=== PATIENT | male | born 1995 | race African-American/Black ===

== ENCOUNTER 2017-04-13 22:25 | Inpatient (IN) | payer BC ==
[~2017-04-13] VITALS: Ht 175.3 cm; Wt 72.7 kg
[~2017-04-13 22:25] MED LIST: LANTUS 3 M100 UNITS1 SC; NOVOLOG PE100 UNITS/ SC
[2017-04-13 23:23] LABS: BASOPHIL COUNT 0.1 K/uL (0-0.1); EOSINOPHIL (%) 0.1 % (0-5); IMMATURE GRANULOCYTE (%) 0.7 % (0.0-0.7); IMMATURE GRANULOCYTE COUNT 0.1 K/uL; INSTRUMENT ABS NEUTROPHIL CT 8.1 K/uL; MCH 27.9 PG (29.0-34.0); MCHC 33.1 G/DL (30.0-36.0); MCV 84.3 FL (86-99); MEAN PLAT.VOLUME 10.7 uM^3 (9.0-12.4); MONOCYTE COUNT 0.4 K/uL (0-0.8); NEUTROPHIL (%) 75.8 % (45-76); NEUTROPHIL COUNT 8.1 K/uL (1.8-6.4); PLATELET COUNT 276 K/uL (156-360); RBC DIS.WIDTH-CV 13.7 % (11.8-14.6); RBC DIS.WIDTH-SD 41.9 % (39-53); RED BLOOD COUNT 5.81 M/uL (4.00-5.50); WHITE BLOOD COUNT 10.6 K/uL (4.1-10.2)
[2017-04-13 23:37] LABS: CARBON DIOXIDE (BICARBONATE) 14.8 MEQ/L (20-31)
[2017-04-13 23:39] LABS: CHLORIDE 98 mEq/L (99-109); POTASSIUM 4.2 mEq/L (3.7-5.4); SODIUM 135 mEq/L (136-147)
[2017-04-13 23:43] LABS: ANION GAP 26 MEQ/L (2-14); TOTAL BILIRUBIN 0.6 mg/dL (0.0-1.0)
[2017-04-13 23:45] LABS: ALKALINE PHOSPHATASE 96 IU/L (3-129); GFR ESTIMATE (CALCULATED) > 59 mL/min/
[2017-04-13 23:46] LABS: UREA NITROGEN (BUN) 10 mg/dL (9-23)
[2017-04-13 23:47] LABS: DIRECT BILIRUBIN 0.3 mg/dL (0.0-0.3)
[2017-04-13 23:49] LABS: LIPASE > 1055 U/L (1.0-51.0)
[2017-04-13 23:52] LABS: GLUCOSE 574 mg/dL (70-99)
[2017-04-14] VITALS (22 sets, daily range): BP systolic 109–154; BP diastolic 59–92
[2017-04-14 00:32] LABS: ADD MIUA? NO; BILIRUBIN NEGATIVE; BLOOD NEGATIVE; COLOR STRAW ((YELLOW)); GLUCOSE (STRIP) >=500; KETONES 80; LEUKOCYTES NEGATIVE; NITRITE NEGATIVE; PROTEIN (STRIP) NEGATIVE; SPECIFIC GRAVITY 1.031 (1.000-1.030); UCUL ADDED? NO; UROBILINOGEN 0.2 MG/DL (0.2-1.0)
[2017-04-14 02:43] LABS: POINT-OF-CARE METER ID UU13113731
[2017-04-14 03:18] LABS: POINT-OF-CARE METER ID UU13113731
[2017-04-14 03:53] LABS: POINT-OF-CARE METER ID UU13113731
[2017-04-14 04:25] LABS: POINT-OF-CARE METER ID UU13113731
[2017-04-14 05:33] LABS: POINT-OF-CARE METER ID UU13113731
[2017-04-14 06:37] LABS: POINT-OF-CARE METER ID UU13113731
[2017-04-14 06:56] LABS: ANION GAP 19 MEQ/L (2-14); CHLORIDE 110 MEQ/L (99-109); GFR ESTIMATE (CALCULATED) > 59 mL/min/; GLUCOSE 216 mg/dL (70-99); POTASSIUM 3.9 MEQ/L (3.7-5.4); SAMPLE HEMOLYSIS CHECK 0; SAMPLE ICTERIC CHECK 0; SAMPLE LIPEMIA CHECK 0; SODIUM 142 MEQ/L (136-147); UREA NITROGEN (BUN) 8 mg/dL (9-23)
[2017-04-14 07:08] LABS: Estimated Average Glucose 260 mg/dL (70-123); HEMOGLOBIN A1c (GLYCOHEMOGLOB) 10.7 % HGB (Below 5.7)
[2017-04-14 07:40] LABS: POINT-OF-CARE METER ID UU13113731
[2017-04-14 07:45] LABS: METH RESISTANT S AUREUS PCR NEGATIVE (NEGATIVE)
[2017-04-14 07:49] LABS: PROBE CHECK PASS; SPECIMEN PROCESSING CONTROL PASS
[2017-04-14 08:47] LABS: POINT-OF-CARE METER ID UU13113731
[2017-04-14 09:49] LABS: POINT-OF-CARE METER ID UU13113731
[2017-04-14 09:58] LABS: ANION GAP 13 MEQ/L (2-14); CHLORIDE 112 MEQ/L (99-109); GFR ESTIMATE (CALCULATED) > 59 mL/min/; GLUCOSE 162 mg/dL (70-99); POTASSIUM 3.4 MEQ/L (3.7-5.4); SAMPLE HEMOLYSIS CHECK 0; SAMPLE ICTERIC CHECK 0; SAMPLE LIPEMIA CHECK 0; SODIUM 140 MEQ/L (136-147); UREA NITROGEN (BUN) 6 mg/dL (9-23)
[2017-04-14 11:03] LABS: POINT-OF-CARE METER ID UU13113731
[2017-04-14 12:05] LABS: POINT-OF-CARE METER ID UU13113731
[2017-04-14 13:36] LABS: ANION GAP 13 MEQ/L (2-14); CHLORIDE 110 MEQ/L (99-109); GFR ESTIMATE (CALCULATED) > 59 mL/min/; GLUCOSE 172 mg/dL (70-99); HDL CHOLESTEROL 40 MG/DL (Desirable>=40); LDL CHOLESTEROL 44 mg/dL (Desirable<100); NON-HDL CHOLESTEROL 65 mg/dL (Desirable<160); POTASSIUM 3.3 MEQ/L (3.7-5.4); SAMPLE HEMOLYSIS CHECK 0; SAMPLE ICTERIC CHECK 0; SAMPLE LIPEMIA CHECK 0; SODIUM 140 MEQ/L (136-147); TOTAL CHOLESTEROL 105 mg/dL (Desirable<200); TRIGLYCERIDES 106 MG/DL (Normal: <150); UREA NITROGEN (BUN) 4 mg/dL (9-23)
[2017-04-14 16:52] LABS: ANION GAP 11 MEQ/L (2-14); CHLORIDE 107 MEQ/L (99-109); POTASSIUM 3.4 MEQ/L (3.7-5.4); SAMPLE HEMOLYSIS CHECK 0; SAMPLE ICTERIC CHECK 0; SAMPLE LIPEMIA CHECK 0; SODIUM 138 MEQ/L (136-147)
[2017-04-14 16:57] LABS: GFR ESTIMATE (CALCULATED) > 59 mL/min/; GLUCOSE 202 mg/dL (70-99); UREA NITROGEN (BUN) 3 mg/dL (9-23)
[2017-04-14 17:32] LABS: UR CREATININE CONCENTRATION 68.8 MG/DL
[2017-04-14 19:29] LABS: POINT-OF-CARE METER ID UU13113731
[2017-04-14 20:35] LABS: POINT-OF-CARE METER ID UU13113731
[2017-04-14 21:17] LABS: ANION GAP 15 MEQ/L (2-14); CHLORIDE 104 MEQ/L (99-109); POTASSIUM 3.7 MEQ/L (3.7-5.4); SAMPLE HEMOLYSIS CHECK 0; SAMPLE ICTERIC CHECK 0; SAMPLE LIPEMIA CHECK 0; SODIUM 138 MEQ/L (136-147)
[2017-04-14 21:22] LABS: GFR ESTIMATE (CALCULATED) > 59 mL/min/; GLUCOSE 250 mg/dL (70-99); UREA NITROGEN (BUN) 3 mg/dL (9-23)
[2017-04-14 21:52] LABS: POINT-OF-CARE METER ID UU13113731
[2017-04-14 23:12] LABS: POINT-OF-CARE METER ID UU13113731
[2017-04-15 02:00] VITALS: BP 135/67
[2017-04-15 05:59] LABS: HEMATOCRIT 42.6 % (38.0-50.0); MCH 28.5 PG (29.0-34.0); MCV 81.6 FL (86-99); MEAN PLAT.VOLUME 10.7 uM^3 (9.0-12.4); PLATELET COUNT 232 K/uL (156-360); RBC DIS.WIDTH-CV 13.6 % (11.8-14.6); RBC DIS.WIDTH-SD 39.6 % (39-53); RED BLOOD COUNT 5.22 M/uL (4.00-5.50); WHITE BLOOD COUNT 9.2 K/uL (4.1-10.2)
[2017-04-15 06:10] VITALS: BP 140/83
[2017-04-15 06:10] LABS: INTER. NORMALIZED RATIO 1.1; PROTHROMBIN TIME 11.1 (9.2-11.2)
[2017-04-15 06:43] LABS: ANION GAP 15 MEQ/L (2-14); CHLORIDE 100 MEQ/L (99-109); GFR ESTIMATE (CALCULATED) > 59 mL/min/; GLUCOSE 172 mg/dL (70-99); POTASSIUM 3.6 MEQ/L (3.7-5.4); SAMPLE HEMOLYSIS CHECK 0; SAMPLE ICTERIC CHECK 0; SAMPLE LIPEMIA CHECK 0; SODIUM 138 MEQ/L (136-147); UREA NITROGEN (BUN) 5 mg/dL (9-23)
[2017-04-15 08:00] VITALS: BP 150/84
[2017-04-15 08:48] LABS: POINT-OF-CARE METER ID UU13113731
[2017-04-15 09:44] LABS: POINT-OF-CARE METER ID UU13113731
[2017-04-15 09:44] LABS: POINT-OF-CARE METER ID UU13113778
[2017-04-15 10:05] VITALS: BP 149/81
[2017-04-15] MEDS ORDERED: LANTUS 3 M100 UNITS1 SC (13:36)
[2017-04-15 15:20] VITALS: BP 134/85
[2017-04-15 16:45] LABS: POINT-OF-CARE METER ID UU14162508; POINT-OF-CARE USER ID PUTDRM
[2017-04-15 21:49] LABS: POINT-OF-CARE METER ID UU14162508; POINT-OF-CARE USER ID PUTDRM
[2017-04-15 23:41] VITALS: BP 133/72
[2017-04-16 06:37] LABS: POINT-OF-CARE METER ID UU14162508
[2017-04-16 06:41] LABS: POINT-OF-CARE METER ID UU14162508
[2017-04-16 07:03] LABS: EOSINOPHIL (%) 0.8 % (0-5); EOSINOPHIL COUNT 0.1 K/uL (0-0.3); HEMATOCRIT 44.7 % (38.0-50.0); IMMATURE GRANULOCYTE (%) 0.4 % (0.0-0.7); INSTRUMENT ABS NEUTROPHIL CT 3.2 K/uL; LYMPHOCYTE COUNT 3.5 K/uL (1.0-2.8); MCH 28.2 PG (29.0-34.0); MCHC 35.1 G/DL (30.0-36.0); MCV 80.4 FL (86-99); MEAN PLAT.VOLUME 11.5 uM^3 (9.0-12.4); MONOCYTE (%) 6.4 % (3-12); MONOCYTE COUNT 0.5 K/uL (0-0.8); NEUTROPHIL (%) 44.1 % (45-76); NEUTROPHIL COUNT 3.2 K/uL (1.8-6.4); NRBC (%) 0.5 /100 WBC (0-0); RBC DIS.WIDTH-CV 13.6 % (11.8-14.6); RBC DIS.WIDTH-SD 38.5 % (39-53); RED BLOOD COUNT 5.56 M/uL (4.00-5.50); WHITE BLOOD COUNT 7.4 K/uL (4.1-10.2)
[2017-04-16 07:05] LABS: PLATELET COUNT 346 K/uL (156-360)
[2017-04-16 07:10] VITALS: BP 133/74
[2017-04-16 07:18] LABS: POINT-OF-CARE METER ID UU14162508
[2017-04-16 07:33] LABS: ANION GAP 12 MEQ/L (2-14); CHLORIDE 101 MEQ/L (99-109); GFR ESTIMATE (CALCULATED) > 59 mL/min/; SAMPLE HEMOLYSIS CHECK 0; SAMPLE ICTERIC CHECK 0; SAMPLE LIPEMIA CHECK 0; SODIUM 142 MEQ/L (136-147); UREA NITROGEN (BUN) 13 mg/dL (9-23)
[2017-04-16 07:37] LABS: GLUCOSE 67 mg/dL (70-99); POTASSIUM 2.8 MEQ/L (3.7-5.4)
[2017-04-16 12:10] LABS: POINT-OF-CARE METER ID UU14162508
[2017-04-16 15:30] LABS: ANION GAP 10 MEQ/L (2-14); CHLORIDE 96 MEQ/L (99-109); GFR ESTIMATE (CALCULATED) > 59 mL/min/; SAMPLE HEMOLYSIS CHECK 1; SAMPLE ICTERIC CHECK 0; SAMPLE LIPEMIA CHECK 0; SODIUM 135 MEQ/L (136-147); UREA NITROGEN (BUN) 14 mg/dL (9-23)
[2017-04-16 15:35] LABS: GLUCOSE 355 mg/dL (70-99); POTASSIUM 4.4 MEQ/L (3.7-5.4)
[2017-04-16 16:35] LABS: POINT-OF-CARE METER ID UU14162508
== END 2017-04-16 18:29 | disposition home or self-care (01) | DRG 637 ==
LOC: EME 22:25 → 4WEST 23:55 → EDOF 23:55 → 4WEST 04-14 01:05 → 2EASTP 04-15 09:55
PROVIDERS: Emergency Medicine; Internal Medicine; Internal Medicine Critical Care Medicine; Internal Medicine Nephrology
DX: E10.10 Type 1 diabetes mellitus with ketoacidosis without coma (principal); G93.41 Metabolic encephalopathy; K85.90 Acute pancreatitis without necrosis or infection, unspecified; N17.9 Acute kidney failure, unspecified; R16.0 Hepatomegaly, not elsewhere classified; I10 Essential (primary) hypertension; J45.909 Unspecified asthma, uncomplicated; R33.9 Retention of urine, unspecified; R74.8 Abnormal levels of other serum enzymes
CPT/HCPCS: 74176; 80048; 80048 91; 80061; 80076; 81003; 82010; 82570; 82803; 82948; 83036; 83605; 83690; 83735; 84100; 84156; 85025; 85027; 85610; 87641; 99281; 99285; J1644; J1815; J2270; J7030; J7042; J7050

== ENCOUNTER 2017-05-16 13:48 | Inpatient (IN) | payer BC ==
[~2017-05-16] VITALS: Ht 175.3 cm; Wt 65.4 kg
[2017-05-16 14:20] LABS: BASOPHIL COUNT 0.1 K/uL (0-0.1); EOSINOPHIL (%) 0.1 % (0-5); HEMATOCRIT 50.7 % (38.0-50.0); IMMATURE GRANULOCYTE (%) 1.5 % (0.0-0.7); IMMATURE GRANULOCYTE COUNT 0.2 K/uL; INSTRUMENT ABS NEUTROPHIL CT 12.3 K/uL; LYMPHOCYTE COUNT 1.4 K/uL (1.0-2.8); MCV 90.5 FL (86-99); MEAN PLAT.VOLUME 10.7 uM^3 (9.0-12.4); MONOCYTE (%) 4.3 % (3-12); MONOCYTE COUNT 0.6 K/uL (0-0.8); NEUTROPHIL (%) 83.9 % (45-76); NEUTROPHIL COUNT 12.3 K/uL (1.8-6.4); PLATELET COUNT 351 K/uL (156-360); RBC DIS.WIDTH-CV 14.7 % (11.8-14.6); RBC DIS.WIDTH-SD 48.4 % (39-53); WHITE BLOOD COUNT 14.7 K/uL (4.1-10.2)
[2017-05-16 14:34] LABS: CHLORIDE 87 mEq/L (99-109); POTASSIUM 4.1 mEq/L (3.7-5.4); SODIUM 138 mEq/L (136-147)
[2017-05-16 14:36] LABS: ADD MIUA? NO; BILIRUBIN NEGATIVE; BLOOD NEGATIVE; COLOR STRAW ((YELLOW)); GLUCOSE (STRIP) >=500; KETONES 80; LEUKOCYTES NEGATIVE; NITRITE NEGATIVE; PROTEIN (STRIP) NEGATIVE; SPECIFIC GRAVITY 1.024 (1.000-1.030); UCUL ADDED? NO; UROBILINOGEN 0.2 MG/DL (0.2-1.0)
[2017-05-16 14:38] LABS: ANION GAP 41 MEQ/L (2-14); TOTAL BILIRUBIN 1.3 mg/dL (0.0-1.0)
[2017-05-16 14:40] LABS: ALKALINE PHOSPHATASE 165 IU/L (3-129); GFR ESTIMATE (CALCULATED) > 59 mL/min/
[2017-05-16 14:42] LABS: DIRECT BILIRUBIN 0.8 mg/dL (0.0-0.3)
[2017-05-16 14:43] LABS: LIPASE 12 U/L (1.0-51.0)
[2017-05-16 14:45] LABS: AMPHETAMINE NEGATIVE (500 ng/mL); BARBITURATES NEGATIVE (200 ng/mL); BENZODIAZEPINES NEGATIVE (150 ng/mL); COCAINE NEGATIVE (150 ng/mL); INTERNAL CONTROLS VALID? YES; METHADONE NEGATIVE (200 ng/mL); METHAMPHETAMINE NEGATIVE (500 ng/mL); OPIATES (MORPHINE) NEGATIVE (100 ng/mL); OXYCODONE NEGATIVE (100 ng/mL); PHENCYCLIDINE NEGATIVE (25 ng/mL); PROPOXYPHENE NEGATIVE (300 ng/mL); THC CANNABINOIDS NEGATIVE (50 ng/mL); TRICYCLIC ANTIDEPRESSANTS NEGATIVE (300 ng/mL)
[2017-05-16 15:02] LABS: GLUCOSE 738 mg/dL (70-99)
[2017-05-16 15:41] LABS: UREA NITROGEN (BUN) 19 mg/dL (9-23)
[2017-05-16] MEDS ORDERED: LANTUS 3 M100 UNITS1 SC (16:03)
[2017-05-16 17:07] VITALS: BP 126/78
[2017-05-16 17:13] VITALS: BP 135/86
[2017-05-16 17:20] VITALS: BP 135/86
[2017-05-16 17:45] VITALS: BP 130/68
[2017-05-16 18:00] VITALS: BP 129/72
[2017-05-16 18:06] LABS: POINT-OF-CARE METER ID UU13113731
[2017-05-16 18:32] LABS: METH RESISTANT S AUREUS PCR NEGATIVE (NEGATIVE)
[2017-05-16 18:42] LABS: POINT-OF-CARE METER ID UU13113731
[2017-05-16 19:31] LABS: POINT-OF-CARE METER ID UU13113731
[2017-05-16 19:57] LABS: PROBE CHECK PASS; SPECIMEN PROCESSING CONTROL PASS
[2017-05-16 20:04] LABS: ANION GAP 30 MEQ/L (2-14); CHLORIDE 105 MEQ/L (99-109); POTASSIUM 4.2 MEQ/L (3.7-5.4); SAMPLE HEMOLYSIS CHECK 0; SAMPLE ICTERIC CHECK 0; SAMPLE LIPEMIA CHECK 0
[2017-05-16 20:14] LABS: SODIUM 147 MEQ/L (136-147)
[2017-05-16 20:29] LABS: GFR ESTIMATE (CALCULATED) > 59 mL/min/; UREA NITROGEN (BUN) 17 mg/dL (9-23)
[2017-05-16 20:29] LABS: POINT-OF-CARE METER ID UU13113731
[2017-05-16 20:32] LABS: GLUCOSE 206 mg/dL (70-99)
[2017-05-16 21:22] LABS: POINT-OF-CARE METER ID UU13113731
[2017-05-16 22:22] LABS: POINT-OF-CARE METER ID UU13113731
[2017-05-16 22:30] LABS: POINT-OF-CARE METER ID UU13113731
[2017-05-16 22:30] LABS: POINT-OF-CARE METER ID UU14100415
[2017-05-16 23:32] LABS: POINT-OF-CARE METER ID UU13113731
[2017-05-17] VITALS (9 sets, daily range): BP systolic 0–133; BP diastolic 0–89
[2017-05-17 00:19] LABS: POINT-OF-CARE METER ID UU13113731
[2017-05-17 01:16] LABS: SODIUM 145 mEq/L (136-147)
[2017-05-17 01:17] LABS: GLUCOSE 188 mg/dL (70-99)
[2017-05-17 01:19] LABS: ANION GAP 19 MEQ/L (2-14)
[2017-05-17 01:21] LABS: GFR ESTIMATE (CALCULATED) > 59 mL/min/
[2017-05-17 01:22] LABS: UREA NITROGEN (BUN) 12 mg/dL (9-23)
[2017-05-17 01:32] LABS: POINT-OF-CARE METER ID UU13113731
[2017-05-17 01:37] LABS: CHLORIDE 109 mEq/L (99-109); POTASSIUM 5.1 mEq/L (3.7-5.4)
[2017-05-17 02:17] LABS: POINT-OF-CARE METER ID UU13113731
[2017-05-17 03:15] LABS: POINT-OF-CARE METER ID UU13113731
[2017-05-17 04:32] LABS: POINT-OF-CARE METER ID UU13113731
[2017-05-17 05:00] LABS: CHLORIDE 109 mEq/L (99-109); POTASSIUM 4.6 mEq/L (3.7-5.4); SODIUM 146 mEq/L (136-147)
[2017-05-17 05:01] LABS: GLUCOSE 133 mg/dL (70-99)
[2017-05-17 05:03] LABS: ANION GAP 20 MEQ/L (2-14)
[2017-05-17 05:05] LABS: GFR ESTIMATE (CALCULATED) > 59 mL/min/
[2017-05-17 05:06] LABS: UREA NITROGEN (BUN) 11 mg/dL (9-23)
[2017-05-17 05:06] LABS: POINT-OF-CARE METER ID UU13113731
[2017-05-17 05:59] LABS: POINT-OF-CARE METER ID UU13113731
[2017-05-17 07:13] LABS: POINT-OF-CARE METER ID UU13113731
[2017-05-17 07:38] LABS: Estimated Average Glucose 295 mg/dL (70-123); HEMOGLOBIN A1c (GLYCOHEMOGLOB) 11.9 % HGB (Below 5.7)
[2017-05-17 08:24] LABS: POINT-OF-CARE METER ID UU13113748
[2017-05-17 09:17] LABS: POINT-OF-CARE METER ID UU13113731
[2017-05-17 09:41] LABS: ANION GAP 21 MEQ/L (2-14); CHLORIDE 106 MEQ/L (99-109); GFR ESTIMATE (CALCULATED) > 59 mL/min/; GLUCOSE 164 mg/dL (70-99); POTASSIUM 3.9 MEQ/L (3.7-5.4); SAMPLE HEMOLYSIS CHECK 0; SAMPLE ICTERIC CHECK 0; SAMPLE LIPEMIA CHECK 0; SODIUM 144 MEQ/L (136-147); UREA NITROGEN (BUN) 11 mg/dL (9-23)
[2017-05-17 10:01] LABS: POINT-OF-CARE METER ID UU13113748
[2017-05-17 11:02] LABS: POINT-OF-CARE METER ID UU13113731
[2017-05-17 12:12] LABS: POINT-OF-CARE METER ID UU13113748
[2017-05-17 13:11] LABS: ANION GAP 19 MEQ/L (2-14); CHLORIDE 104 MEQ/L (99-109); GFR ESTIMATE (CALCULATED) > 59 mL/min/; GLUCOSE 188 mg/dL (70-99); POTASSIUM 4.3 MEQ/L (3.7-5.4); SAMPLE HEMOLYSIS CHECK 0; SAMPLE ICTERIC CHECK 0; SAMPLE LIPEMIA CHECK 0; SODIUM 141 MEQ/L (136-147); UREA NITROGEN (BUN) 9 mg/dL (9-23)
[2017-05-17 13:16] LABS: POINT-OF-CARE METER ID UU13113748
[2017-05-17 14:19] LABS: POINT-OF-CARE METER ID UU13113748
[2017-05-17 15:32] LABS: POINT-OF-CARE METER ID UU13113748
[2017-05-17 16:18] LABS: ANION GAP 15 MEQ/L (2-14); CHLORIDE 102 MEQ/L (99-109); POTASSIUM 4.1 MEQ/L (3.7-5.4); SAMPLE HEMOLYSIS CHECK 0; SAMPLE ICTERIC CHECK 0; SAMPLE LIPEMIA CHECK 0; SODIUM 137 MEQ/L (136-147)
[2017-05-17 16:24] LABS: GFR ESTIMATE (CALCULATED) > 59 mL/min/; GLUCOSE 218 mg/dL (70-99); UREA NITROGEN (BUN) 9 mg/dL (9-23)
[2017-05-17 17:33] LABS: POINT-OF-CARE METER ID UU13113748
[2017-05-17 19:43] LABS: POINT-OF-CARE METER ID UU13113748
[2017-05-17 20:13] LABS: POINT-OF-CARE METER ID UU13113748
[2017-05-17 21:15] LABS: POINT-OF-CARE METER ID UU13113748
[2017-05-17 21:17] LABS: ANION GAP 12 MEQ/L (2-14); CHLORIDE 102 MEQ/L (99-109); GFR ESTIMATE (CALCULATED) > 59 mL/min/; GLUCOSE 208 mg/dL (70-99); SAMPLE HEMOLYSIS CHECK 0; SAMPLE ICTERIC CHECK 0; SAMPLE LIPEMIA CHECK 0; SODIUM 137 MEQ/L (136-147); UREA NITROGEN (BUN) 8 mg/dL (9-23)
[2017-05-17 22:27] LABS: POINT-OF-CARE METER ID UU13113748
[2017-05-17 23:30] LABS: POINT-OF-CARE METER ID UU13113748
[2017-05-17 23:57] LABS: POINT-OF-CARE METER ID UU13113748
[2017-05-18 00:45] VITALS: BP 124/79
[2017-05-18 01:00] LABS: POINT-OF-CARE METER ID UU13113731
[2017-05-18 02:00] VITALS: BP 133/78
[2017-05-18 06:00] VITALS: BP 132/69
[2017-05-18 06:24] LABS: ANION GAP 14 MEQ/L (2-14); CHLORIDE 102 MEQ/L (99-109); GFR ESTIMATE (CALCULATED) > 59 mL/min/; MAGNESIUM 1.4 mg/dl (1.3-2.7); POTASSIUM 4.1 MEQ/L (3.7-5.4); SAMPLE HEMOLYSIS CHECK 0; SAMPLE ICTERIC CHECK 0; SAMPLE LIPEMIA CHECK 0; SODIUM 140 MEQ/L (136-147); UREA NITROGEN (BUN) 8 mg/dL (9-23)
[2017-05-18 06:25] LABS: POINT-OF-CARE METER ID UU14208751
[2017-05-18 06:26] LABS: GLUCOSE 107 mg/dL (70-99)
[2017-05-18 06:51] LABS: BASOPHIL COUNT 0.1 K/uL (0-0.1); EOSINOPHIL (%) 0.7 % (0-5); EOSINOPHIL COUNT 0.1 K/uL (0-0.3); IMMATURE GRANULOCYTE (%) 0.8 % (0.0-0.7); IMMATURE GRANULOCYTE COUNT 0.1 K/uL; INSTRUMENT ABS NEUTROPHIL CT 4.3 K/uL; LYMPHOCYTE COUNT 4.2 K/uL (1.0-2.8); MCH 27.8 PG (29.0-34.0); MCHC 31.8 G/DL (30.0-36.0); MCV 87.2 FL (86-99); MONOCYTE (%) 5.6 % (3-12); MONOCYTE COUNT 0.5 K/uL (0-0.8); NEUTROPHIL (%) 46.9 % (45-76); NEUTROPHIL COUNT 4.3 K/uL (1.8-6.4); RBC DIS.WIDTH-CV 14.8 % (11.8-14.6); RBC DIS.WIDTH-SD 47.8 % (39-53); WHITE BLOOD COUNT 9.2 K/uL (4.1-10.2)
[2017-05-18 07:01] LABS: RED BLOOD COUNT 4.36 M/uL (4.00-5.50)
[2017-05-18 07:54] LABS: PLAT.SUFFICIENCY ADEQUATE
[2017-05-18 08:00] VITALS: BP 130/72
[2017-05-18 08:10] LABS: ALKALINE PHOSPHATASE 103 IU/L (3-129); DIRECT BILIRUBIN 0.1 mg/dL (0.0-0.3); TOTAL BILIRUBIN 0.5 MG/DL (0.0-1.0)
[2017-05-18 08:22] LABS: PLATELET COUNT 235 K/uL (156-360)
[2017-05-18] MEDS ORDERED: VENTOLIN HFA18 GM IH (14:30)
[2017-05-18] MEDS ORDERED: LANTUS 3 M100 UNITS1 SC ×2 (14:46→15:26)
[2017-05-18] MEDS ORDERED: NOVOLOG PE100 UNITS/ SC ×2 (14:46→15:26)
[2017-05-18 15:59] VITALS: BP 143/73
== END 2017-05-18 17:27 | disposition home or self-care (01) | DRG 638 ==
LOC: EME 13:48 → 5EAST 15:09 → 4WEST 15:09 → EDOF 15:09 → 4WEST 17:01 → 5EAST 05-18 07:36
PROVIDERS: Emergency Medicine; Internal Medicine; Internal Medicine Critical Care Medicine; Internal Medicine Nephrology
DX: E10.10 Type 1 diabetes mellitus with ketoacidosis without coma (principal); N17.9 Acute kidney failure, unspecified; E87.0 Hyperosmolality and hypernatremia; F33.9 Major depressive disorder, recurrent, unspecified; E86.1 Hypovolemia; J45.909 Unspecified asthma, uncomplicated; I10 Essential (primary) hypertension; F41.8 Other specified anxiety disorders; F17.210 Nicotine dependence, cigarettes, uncomplicated; Z79.4 Long term (current) use of insulin; Z91.14 Patient's other noncompliance with medication regimen
CPT/HCPCS: 80048; 80048 91; 80076; 81003; 82803; 82948; 83036; 83690; 83735; 84100; 85025; 87641; 99202; 99281; 99284; J1644; J1815; J2405; J7030; J7050; S0028

== ENCOUNTER 2017-06-18 10:07 | Inpatient (IN) | payer BC ==
[~2017-06-18] VITALS: Ht 160 cm; Wt 60.6 kg
[2017-06-18] VITALS (11 sets, daily range): BP systolic 90–136; BP diastolic 46–74
[~2017-06-18 10:07] MED LIST changes: +VENTOLIN HFA18 GM IH
[2017-06-18 10:54] LABS: MEAN PLAT.VOLUME 10.9 uM^3 (9.0-12.4); PLATELET COUNT 423 K/uL (156-360)
[2017-06-18 11:01] LABS: VENOUS PCO2 < 20 mm Hg (41-51)
[2017-06-18 11:10] LABS: CHLORIDE 91 mEq/L (99-109); SODIUM 134 mEq/L (136-147)
[2017-06-18 11:13] LABS: ANION GAP 42 MEQ/L (2-14)
[2017-06-18 11:16] LABS: GFR ESTIMATE (CALCULATED) 48 mL/min/
[2017-06-18 11:17] LABS: UREA NITROGEN (BUN) 23 mg/dL (9-23)
[2017-06-18 11:18] LABS: CARBON DIOXIDE (BICARBONATE) < 15.0 mEq/L (20-31); GLUCOSE 1096 mg/dL (70-99); LIPASE 34 U/L (1.0-51.0); POTASSIUM 6.4 mEq/L (3.7-5.4)
[2017-06-18 11:35] LABS: HEMATOCRIT 48.6 % (38.0-50.0); MCH 29.4 PG (29.0-34.0); MCHC 28.4 G/DL (30.0-36.0); MCV 103.6 FL (86-99); NRBC (%) 0.2 /100 WBC (0-0); RBC DIS.WIDTH-CV 15.2 % (11.8-14.6); RED BLOOD COUNT 4.69 M/uL (4.00-5.50)
[2017-06-18 11:36] LABS: WHITE BLOOD COUNT 38.6 K/uL (4.1-10.2)
[2017-06-18 11:49] LABS: SAMPLE HEMOLYSIS CHECK 2; SAMPLE ICTERIC CHECK 0; SAMPLE LIPEMIA CHECK 1
[2017-06-18 12:52] LABS: ADD MIUA? YES; BILIRUBIN NEGATIVE; BLOOD SMALL; COLOR STRAW ((YELLOW)); GLUCOSE (STRIP) >=500; KETONES 80; LEUKOCYTES NEGATIVE; NITRITE NEGATIVE; PROTEIN (STRIP) 30; SPECIFIC GRAVITY 1.024 (1.000-1.030); UROBILINOGEN 0.2 MG/DL (0.2-1.0)
[2017-06-18 13:00] LABS: BACTERIA RARE /HPF; EPITHELIAL CELLS RARE /HPF; MUCUS TRACE /LPF; RED BLOOD CELLS 0-5 /HPF (0-5); UCUL ADDED? NO; WHITE BLOOD CELLS 0-5 /HPF (0-5)
[2017-06-18 14:29] LABS: HEMATOCRIT 41.1 % (38.0-50.0); MCH 28.8 PG (29.0-34.0); MCHC 31.4 G/DL (30.0-36.0); MEAN PLAT.VOLUME 10.5 uM^3 (9.0-12.4); NRBC (%) 0.1 /100 WBC (0-0); PLATELET COUNT 361 K/uL (156-360); RBC DIS.WIDTH-CV 15.4 % (11.8-14.6); RED BLOOD COUNT 4.48 M/uL (4.00-5.50)
[2017-06-18 14:33] LABS: METH RESISTANT S AUREUS PCR NEGATIVE (NEGATIVE)
[2017-06-18 14:34] LABS: PROBE CHECK PASS; SPECIMEN PROCESSING CONTROL PASS
[2017-06-18 14:51] LABS: ANION GAP 37 MEQ/L (2-14); CHLORIDE 101 MEQ/L (99-109); MAGNESIUM 2.4 mg/dl (1.3-2.7); SAMPLE HEMOLYSIS CHECK 2; SAMPLE ICTERIC CHECK 0; SAMPLE LIPEMIA CHECK 0; UREA NITROGEN (BUN) 26 mg/dL (9-23)
[2017-06-18 14:52] LABS: GFR ESTIMATE (CALCULATED) > 59 mL/min/; GLUCOSE 630 mg/dL (70-99); POTASSIUM 4.8 MEQ/L (3.7-5.4); SODIUM 143 MEQ/L (136-147)
[2017-06-18 15:08] LABS: MCV 91.7 FL (86-99); WHITE BLOOD COUNT 36.5 K/uL (4.1-10.2)
[2017-06-18 15:22] LABS: ABS NEUTROPHIL COUNT 27.8; ANISOCYTOSIS 1+; ATYPICAL LYMPHOCYTE 0.8 %; BASOPHILS 0.4 %; EOSINOPHIL ABS CT 0; INSTRUMENT ABS NEUTROPHIL CT 26.6 K/uL; LYMPHOCYTES 10.8 % (15.0-45.0); MACROCYTES 1+; METAMYELOCYTES 3.8 %; MICROCYTOSIS 1+; MYELOCYTES 2.5 %; POLYCHROMASIA 1+; SEG.NEUTROPHILS 66.3 % (46.0-76.0)
[2017-06-18 16:28] LABS: POINT-OF-CARE METER ID UU14174217
[2017-06-18 17:19] LABS: POINT-OF-CARE METER ID UU14208751
[2017-06-18 18:02] LABS: POINT-OF-CARE METER ID UU14208751
[2017-06-18 18:54] LABS: POINT-OF-CARE METER ID UU14208751
[2017-06-18 19:01] LABS: ANION GAP 24 MEQ/L (2-14); CHLORIDE 109 MEQ/L (99-109); POTASSIUM 4.3 MEQ/L (3.7-5.4); SAMPLE HEMOLYSIS CHECK 0; SAMPLE ICTERIC CHECK 0; SAMPLE LIPEMIA CHECK 0; SODIUM 146 MEQ/L (136-147)
[2017-06-18 19:02] LABS: GFR ESTIMATE (CALCULATED) > 59 mL/min/; UREA NITROGEN (BUN) 20 mg/dL (9-23)
[2017-06-18 19:07] LABS: GLUCOSE 226 mg/dL (70-99)
[2017-06-18 19:35] LABS: POINT-OF-CARE METER ID UU14208751
[2017-06-18 20:39] LABS: POINT-OF-CARE METER ID UU14208751
[2017-06-18 20:59] LABS: POINT-OF-CARE METER ID UU14174217
[2017-06-18 21:25] LABS: AMPHETAMINES QUANT VALUE 0 NG/ML; BARBITUATES QUANT VALUE 0 NG/ML; BENZODIAZEPINES QUANT VALUE 0 NG/ML; BENZODIAZEPINES, URINE SCREEN Negative (200 ng/mL); MARIJUANA QUANT VALUE 0 NG/ML; OPIATES QUANTITATIVE VALUE 0 NG/ML; PHENCYCLIDINE QUANT VALUE 0 NG/ML
[2017-06-18 22:13] LABS: ANION GAP 15 MEQ/L (2-14); CHLORIDE 109 MEQ/L (99-109); GFR ESTIMATE (CALCULATED) > 59 mL/min/; GLUCOSE 178 mg/dL (70-99); POTASSIUM 4.1 MEQ/L (3.7-5.4); SAMPLE HEMOLYSIS CHECK 0; SAMPLE ICTERIC CHECK 0; SAMPLE LIPEMIA CHECK 0; SODIUM 144 MEQ/L (136-147); UREA NITROGEN (BUN) 15 mg/dL (9-23)
[2017-06-18 22:14] LABS: POINT-OF-CARE METER ID UU14174217
[2017-06-18 23:09] LABS: POINT-OF-CARE METER ID UU14174217
[2017-06-19] VITALS (17 sets, daily range): BP systolic 94–143; BP diastolic 48–85
[2017-06-19] LABS: POINT-OF-CARE METER ID UU14174217
[2017-06-19 00:48] LABS: SODIUM 143 mEq/L (136-147)
[2017-06-19 00:50] LABS: GLUCOSE 138 mg/dL (70-99)
[2017-06-19 00:51] LABS: ANION GAP 16 MEQ/L (2-14)
[2017-06-19 00:54] LABS: GFR ESTIMATE (CALCULATED) > 59 mL/min/
[2017-06-19 00:55] LABS: UREA NITROGEN (BUN) 15 mg/dL (9-23)
[2017-06-19 01:00] LABS: POINT-OF-CARE METER ID UU14208751
[2017-06-19 01:01] LABS: CHLORIDE 107 mEq/L (99-109); POTASSIUM 3.1 mEq/L (3.7-5.4)
[2017-06-19 02:03] LABS: POINT-OF-CARE METER ID UU14162636
[2017-06-19 03:11] LABS: POINT-OF-CARE METER ID UU14162636
[2017-06-19 04:12] LABS: POINT-OF-CARE METER ID UU14162636
[2017-06-19 04:31] LABS: POINT-OF-CARE METER ID UU14162636
[2017-06-19 05:34] LABS: POINT-OF-CARE METER ID UU14162636
[2017-06-19 06:10] LABS: ANION GAP 13 MEQ/L (2-14); CHLORIDE 106 MEQ/L (99-109); GFR ESTIMATE (CALCULATED) > 59 mL/min/; POTASSIUM 3.5 MEQ/L (3.7-5.4); SAMPLE HEMOLYSIS CHECK 0; SAMPLE ICTERIC CHECK 0; SAMPLE LIPEMIA CHECK 0; SODIUM 143 MEQ/L (136-147); UREA NITROGEN (BUN) 13 mg/dL (9-23)
[2017-06-19 06:23] LABS: POINT-OF-CARE METER ID UU14162636
[2017-06-19 06:34] LABS: GLUCOSE 101 mg/dL (70-99)
[2017-06-19 08:07] LABS: POINT-OF-CARE METER ID UU13113731
[2017-06-19 08:54] LABS: ANION GAP 13 MEQ/L (2-14); CHLORIDE 106 MEQ/L (99-109); GFR ESTIMATE (CALCULATED) > 59 mL/min/; GLUCOSE 134 mg/dL (70-99); POTASSIUM 3.3 MEQ/L (3.7-5.4); SAMPLE HEMOLYSIS CHECK 0; SAMPLE ICTERIC CHECK 0; SAMPLE LIPEMIA CHECK 0; SODIUM 141 MEQ/L (136-147); UREA NITROGEN (BUN) 12 mg/dL (9-23)
[2017-06-19 09:06] LABS: POINT-OF-CARE METER ID UU14174217
[2017-06-19 09:47] LABS: POINT-OF-CARE METER ID UU13113731
[2017-06-19 10:45] LABS: POINT-OF-CARE METER ID UU13113731
[2017-06-19 11:44] LABS: POINT-OF-CARE METER ID UU13113731
[2017-06-19 12:32] LABS: POINT-OF-CARE METER ID UU13113731
[2017-06-19 13:12] LABS: POINT-OF-CARE METER ID UU13113731; POINT-OF-CARE USER ID AGYTJR
[2017-06-19 13:27] LABS: ANION GAP 12 MEQ/L (2-14); CHLORIDE 106 MEQ/L (99-109); GFR ESTIMATE (CALCULATED) > 59 mL/min/; GLUCOSE 133 mg/dL (70-99); POTASSIUM 3.1 MEQ/L (3.7-5.4); SAMPLE HEMOLYSIS CHECK 0; SAMPLE ICTERIC CHECK 0; SAMPLE LIPEMIA CHECK 0; SODIUM 141 MEQ/L (136-147); UREA NITROGEN (BUN) 11 mg/dL (9-23)
[2017-06-19 14:22] LABS: POINT-OF-CARE METER ID UU13113731
[2017-06-19 14:58] LABS: POINT-OF-CARE METER ID UU13113731
[2017-06-19] MEDS ORDERED: PROAIR HFA8.5 GM IH (15:13)
[2017-06-19] MEDS ORDERED: NOVOLOG PE100 UNITS/ SC (15:13)
[2017-06-19] MEDS ORDERED: LANTUS 3 M100 UNITS1 SC (15:13)
[2017-06-19 18:23] LABS: POINT-OF-CARE METER ID UU14162636
[2017-06-19 22:51] LABS: POINT-OF-CARE METER ID UU13113731
[2017-06-20] VITALS: BP 126/78
[2017-06-20 03:22] LABS: POINT-OF-CARE METER ID UU13113731
[2017-06-20 03:39] LABS: POINT-OF-CARE METER ID UU13113731
[2017-06-20 04:00] VITALS: BP 136/82
[2017-06-20 06:29] LABS: EOSINOPHIL (%) 0.4 % (0-5); HEMATOCRIT 33.9 % (38.0-50.0); IMMATURE GRANULOCYTE (%) 1.3 % (0.0-0.7); IMMATURE GRANULOCYTE COUNT 0.1 K/uL; LYMPHOCYTE COUNT 3.1 K/uL (1.0-2.8); MCH 28.8 PG (29.0-34.0); MCHC 32.7 G/DL (30.0-36.0); MCV 88.1 FL (86-99); MONOCYTE (%) 5.7 % (3-12); MONOCYTE COUNT 0.4 K/uL (0-0.8); NEUTROPHIL (%) 52.5 % (45-76); NRBC (%) 0.3 /100 WBC (0-0); RBC DIS.WIDTH-CV 15.8 % (11.8-14.6); RBC DIS.WIDTH-SD 51.2 % (39-53); RED BLOOD COUNT 3.85 M/uL (4.00-5.50); WHITE BLOOD COUNT 7.7 K/uL (4.1-10.2)
[2017-06-20 06:38] LABS: POINT-OF-CARE METER ID UU13113731
[2017-06-20 06:40] LABS: ANION GAP 5 MEQ/L (2-14); CHLORIDE 106 MEQ/L (99-109); GFR ESTIMATE (CALCULATED) > 59 mL/min/; POTASSIUM 3.4 MEQ/L (3.7-5.4); SAMPLE HEMOLYSIS CHECK 0; SAMPLE ICTERIC CHECK 0; SAMPLE LIPEMIA CHECK 0; SODIUM 141 MEQ/L (136-147); UREA NITROGEN (BUN) 7 mg/dL (9-23)
[2017-06-20 06:48] LABS: GLUCOSE 68 mg/dL (70-99); MAGNESIUM 1.8 mg/dl (1.3-2.7)
[2017-06-20 07:07] LABS: PLAT.SUFFICIENCY ADEQUATE
[2017-06-20 07:25] LABS: PLATELET COUNT 221 K/uL (156-360)
[2017-06-20 08:00] VITALS: BP 143/85
[2017-06-20 10:15] LABS: POINT-OF-CARE METER ID UU13113731; POINT-OF-CARE USER ID 612031313
[2017-06-20 12:00] VITALS: BP 126/83
[2017-06-20] MEDS ORDERED: LANTUS 3 M100 UNITS1 SC (12:06)
[2017-06-20] MEDS ORDERED: NOVOLOG PE100 UNITS/ SC (12:06)
[2017-06-20] MEDS ORDERED: INJECT-EASE1 EACH MC (12:08)
[2017-06-20 14:21] LABS: POINT-OF-CARE METER ID UU14162636; POINT-OF-CARE USER ID 612031313
[2017-06-20 17:53] LABS: POINT-OF-CARE METER ID UU14162636; POINT-OF-CARE USER ID 612031313
[2017-06-20 20:00] VITALS: BP 136/93
[2017-06-20 22:24] LABS: POINT-OF-CARE METER ID UU14162636
[2017-06-21 10:36] LABS: POINT-OF-CARE METER ID UU13113731
[2017-06-21 11:42] LABS: POINT-OF-CARE METER ID UU14208751
[2017-06-21 11:42] LABS: POINT-OF-CARE METER ID UU14174217
== END 2017-06-20 22:38 | disposition home or self-care (01) | DRG 639 ==
LOC: EME → EDBD 10:07 → EDOF 11:27 → ENRESERV 11:28 → EDOF 11:46 → ENRESERV 12:15 → 4WEST 12:49
PROVIDERS: Emergency Medicine; Internal Medicine Critical Care Medicine
DX: E10.10 Type 1 diabetes mellitus with ketoacidosis without coma (principal); D72.829 Elevated white blood cell count, unspecified; E86.0 Dehydration; F17.200 Nicotine dependence, unspecified, uncomplicated; E87.5 Hyperkalemia; J45.909 Unspecified asthma, uncomplicated; I10 Essential (primary) hypertension; F19.90 Other psychoactive substance use, unspecified, uncomplicated; Z79.4 Long term (current) use of insulin
CPT/HCPCS: 71010; 80048; 80048 91; 80306 90; 81003; 82010; 82803; 82948; 83605; 83690; 83735; 84100; 84999; 85025; 85027; 87040; 87641; 93005; 99281; 99285; J1644; J1815; J2060; J2405; J7030; J7050; J7070

== ENCOUNTER 2017-07-20 15:16 | Emergency (ER) | payer BC ==
[~2017-07-20] VITALS: Ht 172.7 cm; Wt 65.4 kg
[~2017-07-20 15:16] MED LIST changes: +INJECT-EASE1 EACH MC; +PROAIR HFA8.5 GM IH
[2017-07-20 15:47] LABS: POINT-OF-CARE METER ID UU13113778
[2017-07-20] MEDS ORDERED: GUAIFENESIN600 M1 PO (16:35)
[2017-07-20] MEDS ORDERED: NOVOLOG PE100 UNITS/ SC (16:35)
[2017-07-20] MEDS ORDERED: TESSALON PERLE100 MG PO (16:35)
[2017-07-20] MEDS ORDERED: LANTUS 3 M100 UNITS1 SC (16:35)
[2017-07-20] MEDS ORDERED: ZYRTEC10 M2 PO (16:35)
[2017-07-20 16:44] VITALS: BP 130/76
== END 2017-07-20 16:46 | disposition home or self-care (01) ==
LOC: EME 15:16
DX: J06.9 Acute upper respiratory infection, unspecified (principal); J45.909 Unspecified asthma, uncomplicated; E11.9 Type 2 diabetes mellitus without complications; Z79.4 Long term (current) use of insulin; Z76.0 Encounter for issue of repeat prescription; F17.200 Nicotine dependence, unspecified, uncomplicated; I10 Essential (primary) hypertension; Z88.2 Allergy status to sulfonamides
CPT/HCPCS: 82948; 94640; 99281; 99284

== ENCOUNTER 2017-07-25 19:28 | Emergency (ER) | payer BC ==
[~2017-07-25] VITALS: Ht 175.3 cm; Wt 65.8 kg
[~2017-07-25 19:28] MED LIST changes: +GUAIFENESIN600 M1 PO; +TESSALON PERLE100 MG PO; +ZYRTEC10 M2 PO
[2017-07-25 20:51] LABS: BASOPHIL COUNT 0.1 K/uL (0-0.1); EOSINOPHIL (%) 0.5 % (0-5); EOSINOPHIL COUNT 0.1 K/uL (0-0.3); HEMATOCRIT 39.3 % (38.0-50.0); IMMATURE GRANULOCYTE (%) 4.6 % (0.0-0.7); IMMATURE GRANULOCYTE COUNT 0.5 K/uL; INSTRUMENT ABS NEUTROPHIL CT 6.4 K/uL; LYMPHOCYTE COUNT 3.2 K/uL (1.0-2.8); MCH 30.1 PG (29.0-34.0); MCHC 32.8 G/DL (30.0-36.0); MCV 91.6 FL (86-99); MONOCYTE (%) 4.9 % (3-12); MONOCYTE COUNT 0.5 K/uL (0-0.8); NEUTROPHIL (%) 59.7 % (45-76); NEUTROPHIL COUNT 6.4 K/uL (1.8-6.4); PLATELET COUNT 383 K/uL (156-360); RBC DIS.WIDTH-CV 13.3 % (11.8-14.6); RED BLOOD COUNT 4.29 M/uL (4.00-5.50); WHITE BLOOD COUNT 10.7 K/uL (4.1-10.2)
[2017-07-25 20:54] LABS: CARBON DIOXIDE (BICARBONATE) 12.2 MEQ/L (20-31)
[2017-07-25 21:01] LABS: CHLORIDE 90 mEq/L (99-109); POTASSIUM 4.9 mEq/L (3.7-5.4); SODIUM 127 mEq/L (136-147)
[2017-07-25 21:05] LABS: ANION GAP 26 MEQ/L (2-14); TOTAL BILIRUBIN 0.6 mg/dL (0.0-1.0)
[2017-07-25 21:06] LABS: GLUCOSE 724 mg/dL (70-99)
[2017-07-25 21:07] LABS: ALKALINE PHOSPHATASE 148 IU/L (3-129); GFR ESTIMATE (CALCULATED) > 59 mL/min/
[2017-07-25 21:08] LABS: UREA NITROGEN (BUN) 21 mg/dL (9-23)
[2017-07-25 21:09] LABS: DIRECT BILIRUBIN 0.3 mg/dL (0.0-0.3)
[2017-07-25 21:11] LABS: LIPASE 24 U/L (1.0-51.0)
[2017-07-25 21:40] LABS: ADD MIUA? NO; BILIRUBIN NEGATIVE; BLOOD NEGATIVE; COLOR COLORLESS ((YELLOW)); GLUCOSE (STRIP) >=500; KETONES 80; LEUKOCYTES NEGATIVE; NITRITE NEGATIVE; PROTEIN (STRIP) NEGATIVE; SPECIFIC GRAVITY 1.027 (1.000-1.030); UROBILINOGEN 0.2 MG/DL (0.2-1.0)
[2017-07-25 22:35] LABS: UCUL ADDED? NO; URINE COMMENT N
[2017-07-26 00:36] LABS: POTASSIUM 4.7 mEq/L (3.7-5.4); SODIUM 132 mEq/L (136-147)
[2017-07-26 00:37] LABS: CHLORIDE 104 mEq/L (99-109)
[2017-07-26 00:39] LABS: ANION GAP 21 MEQ/L (2-14)
[2017-07-26 00:41] LABS: GLUCOSE 474 mg/dL (70-99)
[2017-07-26 00:42] LABS: GFR ESTIMATE (CALCULATED) > 59 mL/min/; UREA NITROGEN (BUN) 18 mg/dL (9-23)
[2017-07-26 01:07] LABS: POINT-OF-CARE METER ID UU14100415
[2017-07-26 01:40] LABS: POINT-OF-CARE METER ID UU13113702
[2017-07-26 02:11] LABS: POINT-OF-CARE METER ID UU13113702
[2017-07-26 02:41] LABS: POINT-OF-CARE METER ID UU13113702
[2017-07-26 03:41] VITALS: BP 123/68
[2017-07-26 03:48] LABS: POINT-OF-CARE METER ID UU13113702
[2017-07-26 07:01] LABS: Estimated Average Glucose 263 mg/dL (70-123); HEMOGLOBIN A1c (GLYCOHEMOGLOB) 10.8 % HGB (Below 5.7)
== END 2017-07-26 03:46 | disposition short-term general hospital (02) ==
LOC: EME 19:28
PROVIDERS: Emergency Medicine
DX: E13.10 Other specified diabetes mellitus with ketoacidosis without coma (principal); J45.909 Unspecified asthma, uncomplicated; Z79.4 Long term (current) use of insulin; I10 Essential (primary) hypertension; F17.200 Nicotine dependence, unspecified, uncomplicated
CPT/HCPCS: 80048; 80048 91; 80076; 81003; 82803; 82948; 83036; 83690; 84100; 85025; 99281; 99285; J1815; J2405; J3010; J7030; J7050

== ENCOUNTER 2017-09-17 12:57 | Inpatient (IN) | payer SELFPAY ==
[~2017-09-17] VITALS: Ht 175.3 cm; Wt 64.1 kg
[2017-09-17 13:48] LABS: BASOPHIL COUNT 0.1 K/uL (0-0.1); EOSINOPHIL (%) 0.7 % (0-5); EOSINOPHIL COUNT 0.1 K/uL (0-0.3); IMMATURE GRANULOCYTE (%) 0.8 % (0.0-0.7); IMMATURE GRANULOCYTE COUNT 0.1 K/uL; INSTRUMENT ABS NEUTROPHIL CT 4.9 K/uL; LYMPHOCYTE COUNT 2.3 K/uL (1.0-2.8); MCH 28.8 PG (29.0-34.0); MCHC 32.3 G/DL (30.0-36.0); MCV 89.2 FL (86-99); MEAN PLAT.VOLUME 10.8 uM^3 (9.0-12.4); MONOCYTE (%) 4.2 % (3-12); MONOCYTE COUNT 0.3 K/uL (0-0.8); NEUTROPHIL (%) 63.2 % (45-76); NEUTROPHIL COUNT 4.9 K/uL (1.8-6.4); PLATELET COUNT 238 K/uL (156-360); RBC DIS.WIDTH-CV 11.9 % (11.8-14.6); RBC DIS.WIDTH-SD 39.1 % (39-53); RED BLOOD COUNT 5.27 M/uL (4.00-5.50); WHITE BLOOD COUNT 7.7 K/uL (4.1-10.2)
[2017-09-17 13:57] LABS: CHLORIDE 100 mEq/L (99-109); SODIUM 132 mEq/L (136-147)
[2017-09-17 14:00] LABS: ANION GAP 11 MEQ/L (2-14)
[2017-09-17 14:01] LABS: GLUCOSE 759 mg/dL (70-99); TOTAL BILIRUBIN 0.4 mg/dL (0.0-1.0)
[2017-09-17 14:03] LABS: ALKALINE PHOSPHATASE 72 IU/L (3-129); GFR ESTIMATE (CALCULATED) > 59 mL/min/
[2017-09-17 14:04] LABS: UREA NITROGEN (BUN) 11 mg/dL (9-23)
[2017-09-17 14:06] LABS: LIPASE 12 U/L (1.0-51.0)
[2017-09-17 14:11] LABS: Estimated Average Glucose 378 mg/dL (70-123)
[2017-09-17 14:15] LABS: HEMOGLOBIN A1c (GLYCOHEMOGLOB) 14.8 % HGB (Below 5.7)
[2017-09-17 14:33] LABS: ADD MIUA? NO; BILIRUBIN NEGATIVE; BLOOD NEGATIVE; COLOR COLORLESS ((YELLOW)); GLUCOSE (STRIP) >=500; KETONES 5; LEUKOCYTES NEGATIVE; NITRITE NEGATIVE; PROTEIN (STRIP) NEGATIVE; SPECIFIC GRAVITY 1.027 (1.000-1.030); UCUL ADDED? NO; UROBILINOGEN 0.2 MG/DL (0.2-1.0)
[2017-09-17 16:23] LABS: CHLORIDE 102 mEq/L (99-109); POTASSIUM 4.2 mEq/L (3.7-5.4); SODIUM 136 mEq/L (136-147)
[2017-09-17 16:26] LABS: GLUCOSE 367 mg/dL (70-99)
[2017-09-17 16:27] LABS: ANION GAP 14 MEQ/L (2-14)
[2017-09-17 16:29] LABS: GFR ESTIMATE (CALCULATED) > 59 mL/min/
[2017-09-17 16:30] LABS: UREA NITROGEN (BUN) 10 mg/dL (9-23)
[2017-09-17 16:33] LABS: POINT-OF-CARE METER ID UU13113747
[2017-09-17] MEDS ORDERED: VENTOLIN HFA18 GM IH (16:48)
[2017-09-17 16:57] LABS: POINT-OF-CARE METER ID UU13113747
[2017-09-17] MEDS ORDERED: NOVOLIN N100 UNITS/ SC (17:08)
[2017-09-17 18:09] LABS: POINT-OF-CARE METER ID UU13113747
[2017-09-17 19:00] VITALS: BP 106/54
[2017-09-17 19:11] LABS: POINT-OF-CARE METER ID UU14314082
[2017-09-17 19:32] LABS: POINT-OF-CARE METER ID UU14314082
[2017-09-17 19:55] LABS: METH RESISTANT S AUREUS PCR NEGATIVE (NEGATIVE)
[2017-09-17 20:00] VITALS: BP 102/65
[2017-09-17 20:19] LABS: ANION GAP 6 MEQ/L (2-14); CHLORIDE 107 MEQ/L (99-109); SAMPLE HEMOLYSIS CHECK 0; SAMPLE ICTERIC CHECK 0; SAMPLE LIPEMIA CHECK 0; SODIUM 142 MEQ/L (136-147)
[2017-09-17 20:19] LABS: PROBE CHECK PASS; SPECIMEN PROCESSING CONTROL PASS
[2017-09-17 20:20] LABS: POTASSIUM 3.2 MEQ/L (3.7-5.4)
[2017-09-17 20:24] LABS: GFR ESTIMATE (CALCULATED) > 59 mL/min/; UREA NITROGEN (BUN) 9 mg/dL (9-23)
[2017-09-17 20:26] LABS: GLUCOSE 73 mg/dL (70-99)
[2017-09-17 20:33] LABS: POINT-OF-CARE METER ID UU14314082
[2017-09-17 20:50] LABS: POINT-OF-CARE METER ID UU14314082
[2017-09-17 21:00] VITALS: BP 100/64
[2017-09-17 22:00] VITALS: BP 102/66
[2017-09-17 22:28] LABS: POINT-OF-CARE METER ID UU14208751
[2017-09-17 23:00] VITALS: BP 133/79
[2017-09-18] VITALS (16 sets, daily range): BP systolic 94–125; BP diastolic 49–87
[2017-09-18 00:39] LABS: CHLORIDE 103 mEq/L (99-109); POTASSIUM 3.7 mEq/L (3.7-5.4); SODIUM 138 mEq/L (136-147)
[2017-09-18 00:43] LABS: ANION GAP 9 MEQ/L (2-14)
[2017-09-18 00:45] LABS: GFR ESTIMATE (CALCULATED) > 59 mL/min/
[2017-09-18 00:46] LABS: UREA NITROGEN (BUN) 10 mg/dL (9-23)
[2017-09-18 00:49] LABS: GLUCOSE 312 mg/dL (70-99)
[2017-09-18 03:54] LABS: HEMATOCRIT 38.6 % (38.0-50.0); MCHC 32.9 G/DL (30.0-36.0); MCV 88.1 FL (86-99); MEAN PLAT.VOLUME 10.8 uM^3 (9.0-12.4); NRBC (%) 0.3 /100 WBC (0-0); PLATELET COUNT 220 K/uL (156-360); RBC DIS.WIDTH-CV 11.9 % (11.8-14.6); RBC DIS.WIDTH-SD 38.5 % (39-53); RED BLOOD COUNT 4.38 M/uL (4.00-5.50); WHITE BLOOD COUNT 9.3 K/uL (4.1-10.2)
[2017-09-18 04:02] LABS: CHLORIDE 107 mEq/L (99-109); POTASSIUM 3.8 mEq/L (3.7-5.4); SODIUM 139 mEq/L (136-147)
[2017-09-18 04:04] LABS: GLUCOSE 233 mg/dL (70-99)
[2017-09-18 04:06] LABS: ANION GAP 8 MEQ/L (2-14)
[2017-09-18 04:08] LABS: GFR ESTIMATE (CALCULATED) > 59 mL/min/
[2017-09-18 04:09] LABS: UREA NITROGEN (BUN) 10 mg/dL (9-23)
[2017-09-18 09:13] LABS: ANION GAP 4 MEQ/L (2-14); CHLORIDE 111 MEQ/L (99-109); GFR ESTIMATE (CALCULATED) > 59 mL/min/; SAMPLE HEMOLYSIS CHECK 0; SAMPLE ICTERIC CHECK 0; SAMPLE LIPEMIA CHECK 0; SODIUM 143 MEQ/L (136-147); UREA NITROGEN (BUN) 9 mg/dL (9-23)
[2017-09-18 09:15] LABS: GLUCOSE 80 mg/dL (70-99)
[2017-09-18 11:44] LABS: POINT-OF-CARE METER ID UU14162636
[2017-09-18 16:38] LABS: POINT-OF-CARE METER ID UU14314083
[2017-09-18] MEDS ORDERED: GABAPENTIN800 MG PO (17:25)
[2017-09-18] MEDS ORDERED: CLONIDINE HCL0.1 MG PO (17:26)
[2017-09-18] MEDS ORDERED: GABAPENTIN300 MG PO (17:26)
[2017-09-18] MEDS ORDERED: SERTRALINE HCL100 MG PO (17:27)
[2017-09-18] MEDS ORDERED: LEVEMIR FL100 UNIT/1 SC ×2 (17:30→17:57)
[2017-09-18] MEDS ORDERED: NOVOLOG PE100 UNITS/ SC (17:39)
[2017-09-19 10:01] LABS: POINT-OF-CARE METER ID UU13113702
[2017-09-19 10:01] LABS: POINT-OF-CARE METER ID UU13113747
== END 2017-09-18 17:05 | DRG 638 ==
LOC: EME 12:57 → ENRESERV 14:56 → 4WEST 14:56 → EDOF 14:56 → ENRESERV 16:14 → 4WEST 16:32 → ENRESERV 16:34 → 4WEST 17:42 → ENRESERV 17:43 → CANRESERV 17:44 → ENRESERV 17:44 → 4WEST 09-18 17:05
PROVIDERS: Internal Medicine Critical Care Medicine; Internal Medicine Pulmonary Disease; Physician Assistant
DX: E10.10 Type 1 diabetes mellitus with ketoacidosis without coma (principal); R45.851 Suicidal ideations; F43.21 Adjustment disorder with depressed mood; E87.5 Hyperkalemia; I10 Essential (primary) hypertension; E87.8 Other disorders of electrolyte and fluid balance, not elsewhere classified; F31.9 Bipolar disorder, unspecified; F41.9 Anxiety disorder, unspecified; J45.909 Unspecified asthma, uncomplicated; F12.90 Cannabis use, unspecified, uncomplicated; E87.1 Hypo-osmolality and hyponatremia; F17.200 Nicotine dependence, unspecified, uncomplicated; K08.89 Other specified disorders of teeth and supporting structures; Z91.14 Patient's other noncompliance with medication regimen; Z79.4 Long term (current) use of insulin
CPT/HCPCS: 80048; 80048 91; 80053; 81003; 82010; 82948; 83036; 83690; 84100; 85025; 85027; 87641; 99281; 99285; J1815; J1885; J7030; J7050; J7120

== ENCOUNTER 2017-09-18 15:33 | Inpatient (IN) | payer OTHER ==
[~2017-09-18 15:33] MED LIST changes: +NOVOLIN N100 UNITS/ SC
[2017-09-18] MEDS ORDERED: GABAPENTIN800 MG PO (17:25)
[2017-09-18 17:26] VITALS: BP 136/86
[2017-09-18] MEDS ORDERED: GABAPENTIN300 MG PO (17:26)
[2017-09-18] MEDS ORDERED: CLONIDINE HCL0.1 MG PO (17:26)
[2017-09-18] MEDS ORDERED: SERTRALINE HCL100 MG PO (17:27)
[2017-09-18] MEDS ORDERED: LEVEMIR FL100 UNIT/1 SC ×2 (17:30→17:57)
[2017-09-18 17:32] LABS: POINT-OF-CARE METER ID UU14188576; POINT-OF-CARE USER ID BHSMEW
[2017-09-18] MEDS ORDERED: NOVOLOG PE100 UNITS/ SC (17:39)
[2017-09-18 18:25] VITALS: BP 136/86
[2017-09-18 20:56] LABS: POINT-OF-CARE METER ID UU14188576; POINT-OF-CARE USER ID BHSMEW
[2017-09-19 06:38] LABS: POINT-OF-CARE METER ID UU14188576
[2017-09-19 07:39] VITALS: BP 109/62
[2017-09-19 11:45] LABS: POINT-OF-CARE METER ID UU14188576; POINT-OF-CARE USER ID BHSTSA
[2017-09-19 16:04] VITALS: BP 115/63
[2017-09-19 16:53] LABS: POINT-OF-CARE METER ID UU14188576; POINT-OF-CARE USER ID BHSMLB
[2017-09-19 20:12] LABS: POINT-OF-CARE METER ID UU14188576; POINT-OF-CARE USER ID ENVTLS63
[2017-09-20 06:25] LABS: POINT-OF-CARE METER ID UU14188576; POINT-OF-CARE USER ID ENVTLS63
[2017-09-20 07:58] VITALS: BP 118/66
[2017-09-20 08:00] LABS: POINT-OF-CARE METER ID UU14188576
[2017-09-20] MEDS ORDERED: ZOLOFT100 MG PO (08:56)
[2017-09-20] MEDS ORDERED: LEVEMIR FL100 UNIT/1 SC (08:56)
[2017-09-20] MEDS ORDERED: BUSPAR10 MG PO (08:56)
[2017-09-20 09:07] LABS: POINT-OF-CARE METER ID UU14188576
[2017-09-21 09:05] LABS: POINT-OF-CARE METER ID UU14188576
== END 2017-09-20 13:16 | disposition home or self-care (01) | DRG 885 ==
LOC: 1WEST 15:33 → ENRESERV 16:42 → 1WEST 17:09
PROVIDERS: Psychiatry & Neurology Psychiatry
DX: F33.1 Major depressive disorder, recurrent, moderate (principal); R45.851 Suicidal ideations; F43.21 Adjustment disorder with depressed mood; F12.20 Cannabis dependence, uncomplicated; E10.10 Type 1 diabetes mellitus with ketoacidosis without coma; Z79.4 Long term (current) use of insulin; Z59.0 Homelessness; Z79.899 Other long term (current) drug therapy; Z91.14 Patient's other noncompliance with medication regimen
CPT/HCPCS: 82948; 97150 GO; 97165 GO; 99202; J1815; Q0177